=== PATIENT | male | born 1975 | race Caucasian/White ===

== ENCOUNTER → 2020-06-25 | Outpatient (CLI) | payer OTHER ==
[~2020-06-25] MED LIST: DEXILANT60 MG PO; EPIPEN 2-P0.3 MG/0.3 INJ; IMDUR ER TAB 3030 MG PO; LISINOPRIL-HCT1 EAC1 PO; ST. JOSEPH ASPI81 MG PO
== END ==
LOC: CATH 10:59
DX: R94.39 Abnormal result of other cardiovascular function study (principal); I20.8 Other forms of angina pectoris; E78.5 Hyperlipidemia, unspecified; I10 Essential (primary) hypertension; E83.119 Hemochromatosis, unspecified; I43 Cardiomyopathy in diseases classified elsewhere; Z82.49 Family history of ischemic heart disease and other diseases of the circulatory system; F17.220 Nicotine dependence, chewing tobacco, uncomplicated; Z79.899 Other long term (current) drug therapy
CPT/HCPCS: 99152; 99153; C1769; C1887; C1894; J1644; J2250; J3010; J7030; Q9967